=== PATIENT | female | born 1935 | race Caucasian/White ===

== ENCOUNTER 2016-07-25 13:19 | Inpatient (IN) | payer OTHER, MEDICARE ==
[~2016-07-25] VITALS: Ht 134.6 cm; Wt 53.1 kg
--- NOTE | 2016-07-25 13:45 | NUR ---
C/O FEELING LIGHTHEADED, DIZZY, NAUSEATED X 3 DAYS. DENIES CHEST PAIN OR SOB, BUT C/O LEFT SIDED NECK PAIN X 3 DAYS. SPEAK PROTUGESE, DAUGHTER TRANSLATING. DAUGHTER REPORTS SHE HAD A SIMILIAR EPSISODE LAST MONTH.
--- NOTE | 2016-07-25 13:53 | ED GENERAL ADULT ---
History of Present Illness General Chief Complaint: General Adult Stated Complaint: LFT EAR PAIN/DIZZINESS/CONFUSION Source: patient, family Exam Limitations: language barrier Vital Signs & Intake/Output Vital Signs & Intake/Output Vital Signs Date Time Temp Pulse Resp B/P B/P Pulse O2 O2 Flow FiO2 Mean Ox Delivery Rate 07/25 1805 97.6 76 18 166/72 99 Room Air 05/ 1501 97.2 67 18 149/70 97 Room Air 07/25 1428 Room Air 07/25 1348 98.4 82 18 134/79 99 Room Air Allergies Coded Allergies: NO KNOWN ALLERGIES (07/18/13) Reconcile Medications Acetaminophen 500 MG TABLET 2 TAB PO DAILY PAIN (Reported) Celecoxib 200 MG CAPSULE 1 CAP PO DAILY OSTEOPOROSIS (Reported) Lisinopril 10 MG TABLET 1 TAB PO DAILY BP (Reported) Multivitamin (Multi-Day Vitamins) 1 EACH TABLET 1 TAB PO DAILY SUPPLEMENT ( Reported) Omeprazole 20 MG CAPSULE.DR 1 CAP PO DAILY GI (Reported) Simvastatin (Simvastatin*) 20 MG TABLET 1 TAB PO QPM CHOLESTEROL (Reported) Triage Note: C/O FEELING LIGHTHEADED, DIZZY X 3 DAYS. DENIES CHEST PAIN OR SOB, BUT C/O LEFT SIDED NECK PAIN X 3 DAYS. SPEAK PROTUGESE, DAUGHTER TRANSLATING. Triage Nurses Notes Reviewed? yes HPI: Patient is a 81-year-old female presents for evaluation of dizziness, left-sided ear pain, near syncope sensations, pain radiating from the left side of her neck into the left occipital area. Symptoms 3 days, intermittent, last between 5 minutes and 30 minutes. Symptoms occur randomly, no apparent inciting factors. 2-3 episodes per day. Patient's daughter reports that patient appears mildly confused and disoriented when these episodes are occurring. Patient reports the episodes feel "like things are going dark and then I am going to pass out". Left-sided ear pain onset today. Patient increased her fluid intake with no improvement of symptoms. Denies history of similar symptoms. Denies fevers, chills, recent trauma, chest pain, palpitations, dyspnea, extremity numbness or weakness. (GERMÁN CHILEL,KAYLA) Past History Travel History Traveled to [place] past 21 day No Medical History Any Pertinent Medical History? see below for history Cardiovascular: hypertension, hyperlipidemia Musculoskeletal: chronic back pain Surgical History Surgical History: non-contributory Psychosocial History Who do you live with Family Services at Home None What is your primary language Ethiopian Tobacco Use: Never used ETOH Use: occasional use Family History Hx Contributory? No (KAYLA POLK) Review of Systems Review of Systems Constitutional: Denies: chills, fever. EENTM: Reports: ear pain. Denies: blurred vision. Respiratory: Denies: cough, short of breath. Cardiovascular: Reports: see HPI. Denies: chest pain, palpitations, syncope. GI: Reports: nausea. Denies: abdominal pain, vomiting. Genitourinary: Reports: no symptoms. Musculoskeletal: Reports: neck pain. Skin: Reports: no symptoms. Neurological/Psychological: Reports: see HPI. Hematologic/Endocrine: Reports: no symptoms. Immunologic/Allergic: Reports: no symptoms. (KAYLA POLK) Physical Exam Physical Exam General Appearance: well developed/nourished, alert, awake Head: atraumatic, normal appearance Eyes: Bilateral: normal appearance, PERRL, EOMI. Ears, Nose, Throat: normal pharynx, normal ENT inspection, hearing grossly normal Neck: normal inspection, supple, full range of motion, no appreciable carotid bruit Respiratory: normal breath sounds, no respiratory distress, lungs clear Cardiovascular: regular rate/rhythm, no appreciable murmur Gastrointestinal: soft, non-tender Back: normal inspection, normal range of motion Extremities: normal inspection, normal capillary refill, normal range of motion, no edema Neurologic/Psych: awake, alert, oriented x 3, normal mood/affect, elevator adjuster II-XII nml as tested, normal [id number]-wi-crych movements Skin: intact, normal color, warm/dry Lymphatic: no anterior cervical anjali Core Measures ACS in differential dx? Yes ASA ordered for poss ACS? No-ACS ruled out CVA/TIA Diagnosis: Yes NIH Stroke Scale: Total 0 Dt/Tm Last Known Well: No Neurological S/S of CVA: Dizziness Reason tPA not ordered: Medical Contraindication Severe Sepsis Present: No Septic Shock Present: No Bedside Swallow Eval Done: Yes Result of Evaluation: Pass (KAYLA POLK) Progress Differential Diagnoses I considered the following diagnoses in my evaluation of the patient: peripheral vs central vertigo, cerebellar dysfunction, carotid dissection, electrolyte abnormality, anemia, orthostasis Plan of Care: Orders Procedure Date/time Status Regular Diet 07/25 D Active Patient Data 07/25 1835 Active OXYGEN SETUP (GEN) 07/25 170 Active Saline Lock 07/25 1706 Active Admit to inpatient 07/25 1706 Active Vital Signs 07/25 1706 Active Activity/Ambulation 07/25 1706 Active Code Status 07/25 1706 Active Intake & Output 07/25 1428 Active MISTAKE 07/25 1404 Active Telemetry/Vineyard Tender 07/25 1404 Active TROPONIN LEVEL 07/25 1404 Complete COMPREHENSIVE METABOLIC PANEL 07/25 1404 Complete CBC WITHOUT DIFFERENTIAL 07/25 1404 Complete EKG 07/25 1349 Active Laboratory Tests 07/25/16 1423: Anion Gap 12, Estimated GFR > 60, BUN/Creatinine Ratio 23.3, Glucose 111 H, Calcium 9.3, Total Bilirubin 0.5, AST 24, ALT 44, Alkaline Phosphatase 43, Troponin I < 0.01, Total Protein 6.9, Albumin 4.4, Globulin 2.5, Albumin/ Globulin Ratio 1.8, CBC w Diff NO MAN DIFF REQ, RBC 4.28, MCV 87.3, MCH 29.8, RDW 13.6, MPV 8.3, Gran % 56.2, Lymphocytes % 35.1, Monocytes % 7.0, Eosinophils % 1.4, Basophils % 0.3, Absolute Granulocytes 3.0, Absolute Lymphocytes 1.9, Absolute Monocytes 0.4, Absolute Eosinophils 0.1, Absolute Basophils 0, PUBS MCHC 34.1 Patient orthostatic negative 1430: Discussed with Dr. Adrian. 1520: Patient reports mild improvement in symptoms after Meclizine. Awaiting CT scan. 1710: Results of CT scan discussed with patient and her daughter. Patient passed bedside swallow evaluation. Dr. Adrian to discuss patient with hospitalist for admission (GERMÁN CHILEL,KAYLA) Diagnostic Imaging: Viewed by Me: CT Scan. Discussed w/RAD: CT Scan. Radiology Impression: PATIENT: KATERINE CONTRERAS PRESENT AGE: 81 PATIENT ACCOUNT NO: [id number] : 37 LOCATION: [facility] ORDERING PHYSICIAN: KAYLA CHILEL SERVICE DATE: 07/25/16 EXAM TYPE: CAT - CT HEAD ANGIOGRAM; CT NECK ANGIOGRAM EXAMINATION: CT HEAD ANGIOGRAM, CT NECK ANGIOGRAM CLINICAL INFORMATION: Dizziness. Left-sided neck pain. COMPARISON: No relevant prior imaging available. TECHNIQUE: Research Executive images were obtained. A CT angiogram of the head and neck was performed in the arterial phase after the intravenous administration of 95 mL Optiray 320. Pre and delayed postcontrast images of the head were also obtained. MIP reconstructions were generated in multiple orientations at the acquisition workstation. Multiple three-dimensional surface rendered images and maximum intensity projection images were generated on a dedicated 3-D lab workstation. Total exam dose-length product 2060.49 mGy- cm FINDINGS: Head: Delayed postcontrast images reveal subtle enhancement within the caudate head and putamen for instance best illustrated on axial image 34 of 64 series 5. Otherwise no worrisome intracranial mass or enhancement. There is no intracranial mass effect or midline shift. No abnormal extra axial collection. Lateral and third ventricles are normal. No hydrocephalus. Peres- white matter differentiation is preserved and there is no evidence of acute territorial infarct. There is no acute intracranial hemorrhage. The calvarium and skull base are intact. Mastoid air cells and middle ear cavities are well aerated. Visualized paranasal sinuses are well aerated. CT angiogram neck: There is reflux of contrast material into the internal jugular veins therefore the diagnostic accuracy of this examination is limited. The aortic arch apex is normal and the origins of the major aortic branches are grossly patent. The common carotid arteries are normal. Calcified atherosclerotic plaque involves both carotid bifurcations. There is no internal carotid artery stenosis. The cervical segments of the vertebral arteries are well aerated. The vertebral artery origins are suboptimally assessed. CT angiogram head: The petrous, cavernous, and supraclinoid segments of the internal carotid arteries are patent. The intradural vertebral artery segments and basilar artery are patent. There is moderate to severe diffuse irregular narrowing of the right posterior cerebral artery. The anterior, middle, and posterior cerebral artery complexes are otherwise unremarkable. Other: There is a heterogeneously enhancing nodule involving the thyroid isthmus and the lower pole of left thyroid lobe. Soft tissues of the neck are otherwise unremarkable. Grossly there are no pathologically enlarged cervical lymph nodes. Lung apices are clear. IMPRESSION: Delayed postcontrast images reveal subtle enhancement of the right caudate head and the right putamen. The etiology of this finding is uncertain. It may indicate the presence of a developmental venous anomaly. Alternatively this finding may represent parenchymal enhancement associated with a subacute infarct therefore correlation with the patient's clinical symptoms is recommended. Alternatively a brain MRI without and with contrast may be helpful for better anatomic characterization of this finding. There is reflux of contrast material into the internal jugular veins therefore the diagnostic accuracy of the CT angiogram component of this examination is limited. Calcified atheromatous plaque involves both carotid bifurcations. No intracranial internal carotid artery stenosis. There is diffuse moderate to high-grade narrowing of the right posterior cerebral artery. Otherwise no evidence of high-grade stenosis or proximal large vessel occlusion within the intracranial vessels. There is a heterogeneously enhancing nodule involving the thyroid isthmus in the lower pole of the left thyroid lobe. Correlation with thyroid function tests is recommended. DICTATED BY: MYRNA LYNN MD DATE/TIME DICTATED:07/25/161625 MEDICARE SPECIALIST:SANTANA DATE/TIME TRANSCRIBED:07/25/161625 CONFIDENTIAL, DO NOT COPY WITHOUT APPROPRIATE AUTHORIZATION. <Electronically signed in Other Vendor System> SIGNED BY: MYRNA LYNN MD 07/25/16 1642 Initial ED EKG: normal sinus rhythm 76 bpm normal axis, normal intervals, less than [address] depression in lead 2, aVF, V4 through V6 Rhythm Strip: normal sinus rhythm (KAYLA POLK) Departure Departure Disposition: STILL A PATIENT Condition: Stable Clinical Impression Primary Impression: Vertigo, central Secondary Impressions: CVA (cerebral vascular accident) Referrals: ALONDRA ESCOBEDO MD Departure Forms: Customer Survey General Discharge Information Admission Note Spoke With: ABIDA PALMA MD Documentation of Exam: Documentation of any treatments & extenuating circumstances including Concerns Regarding Discharge (functional status, medication knowledge or non-compliance, living conditions, etc.) that warrant an admission rather than observation: SERIAL NEUROLOGIC EXAMS, NEUROLOGY CONSULTATION, MRI IMAGING, TELEMETRY MONITORING, ANTIPLATELET THERAPY (KAYLA POLK) PA/ASSEMBLER GARMENT FORM Co-Sign Statement Statement: ED Attending supervision documentation- x I saw and evaluated the patient. I have also reviewed all the pertinent lab results and diagnostic results. I agree with the findings and the plan of care as documented in the PA's/ASSEMBLER GARMENT FORM's documentation. [] I have reviewed the ED Record and agree with the PA's/ASSEMBLER GARMENT FORM's documentation. [] Additions or exceptions (if any) to the PAs/ASSEMBLER GARMENT FORM's note and plan are summarized below: [] (TAMARA ADRIAN MD) Critical Care Note Critical Care Note Critical Care Time: non-applicable (GERMÁN CHILEL,KAYLA)
--- NOTE | 2016-07-25 13:56 | NUR ---
RECIEVED TO ROOM 16 WITH DTR. PT CHANGED INTO HOSP GOWN. EKG BEING DONE. KAYLA DUNLAP IN TO SEE PT
--- NOTE | 2016-07-25 14:11 | NUR ---
ORTHOSTATIC BLOOD PRESSURES DONE
--- NOTE | 2016-07-25 14:27 | NUR ---
LABS DRAWN. IV PLACED. MECLIZINE GIVEN. PT ON MONITOR IN NSR
[2016-07-25 14:31] LABS: ABSOLUTE BASOPHIL COUNT 0 /CUMM (0.0-0.2); ABSOLUTE EOSINOPHIL COUNT 0.1 /CUMM (0.0-0.7); ABSOLUTE LYMPH COUNT 1.9 /CUMM (1.2-3.4); ABSOLUTE MONOCYTE COUNT 0.4 /CUMM (0.10-0.60); BASOPHIL % 0.3 % (0.0-2.0); EOSINOPHIL % 1.4 % (0-5); GRANULOCYTE % 56.2 % (42.2-75.2); HEMATOCRIT 37.4 % (37-47); MEAN CORPUSCULAR HGB 29.8 PG (27.0-31.0); MEAN CORPUSCULAR HGB CONC 34.1 G/DL (33.0-37.0); MEAN CORPUSCULAR VOLUME 87.3 FL (81.0-99.0); MEAN PLATELET VOLUME 8.3 FL (7.4-10.4); PLATELET COUNT 183 /CUMM (130-400); RBC DISTRIBUTION WIDTH 13.6 % (11.5-14.5); RED BLOOD CELL CT 4.28 /CUMM (4.20-5.40); WHITE BLOOD CELL COUNT 5.3 /CUMM (4.8-10.8)
--- NOTE | 2016-07-25 15:00 | NUR ---
PT RESTING QUIETLY. DTR AT BEDSIDE
--- NOTE | 2016-07-25 15:35 | NUR ---
PT TAKEN TO CT SCAN
[2016-07-25] MEDS ORDERED: LISINOPRIL10 M1 PO (16:19)
[2016-07-25] MEDS ORDERED: CELECOXIB200 M1 PO (16:19)
[2016-07-25] MEDS ORDERED: SIMVASTATIN20 M2 PO (16:19)
[2016-07-25] MEDS ORDERED: ACETAMINOPHEN500 M4 PO (16:20)
[2016-07-25] MEDS ORDERED: OMEPRAZOLE20 M2 PO (16:20)
[2016-07-25] MEDS ORDERED: MULTI-DAY VITA1 EACH PO (16:20)
--- NOTE | 2016-07-25 16:42 | CT SCAN REPORT ---
EXAMINATION: CT HEAD ANGIOGRAM, CT NECK ANGIOGRAM CLINICAL INFORMATION: Dizziness. Left-sided neck pain. COMPARISON: No relevant prior imaging available. TECHNIQUE: Prepress Operator images were obtained. A CT angiogram of the head and neck was performed in the arterial phase after the intravenous administration of 95 mL Optiray 320. Pre and delayed postcontrast images of the head were also obtained. MIP reconstructions were generated in multiple orientations at the acquisition workstation. Multiple three-dimensional surface rendered images and maximum intensity projection images were generated on a dedicated 3-D lab workstation. Total exam dose-length product 2060.49 mGy-cm FINDINGS: Head: Delayed postcontrast images reveal subtle enhancement within the caudate head and putamen for instance best illustrated on axial image 34 of 64 series 5. Otherwise no worrisome intracranial mass or enhancement. There is no intracranial mass effect or midline shift. No abnormal extra axial collection. Lateral and third ventricles are normal. No hydrocephalus. Peres-white matter differentiation is preserved and there is no evidence of acute territorial infarct. There is no acute intracranial hemorrhage. The calvarium and skull base are intact. Mastoid air cells and middle ear cavities are well aerated. Visualized paranasal sinuses are well aerated. CT angiogram neck: There is reflux of contrast material into the internal jugular veins therefore the diagnostic accuracy of this examination is limited. The aortic arch apex is normal and the origins of the major aortic branches are grossly patent. The common carotid arteries are normal. Calcified atherosclerotic plaque involves both carotid bifurcations. There is no internal carotid artery stenosis. The cervical segments of the vertebral arteries are well aerated. The vertebral artery origins are suboptimally assessed. CT angiogram head: The petrous, cavernous, and supraclinoid segments of the internal carotid arteries are patent. The intradural vertebral artery segments and basilar artery are patent. There is moderate to severe diffuse irregular narrowing of the right posterior cerebral artery. The anterior, middle, and posterior cerebral artery complexes are otherwise unremarkable. Other: There is a heterogeneously enhancing nodule involving the thyroid isthmus and the lower pole of left thyroid lobe. Soft tissues of the neck are otherwise unremarkable. Grossly there are no pathologically enlarged cervical lymph nodes. Lung apices are clear. IMPRESSION: Delayed postcontrast images reveal subtle enhancement of the right caudate head and the right putamen. The etiology of this finding is uncertain. It may indicate the presence of a developmental venous anomaly. Alternatively this finding may represent parenchymal enhancement associated with a subacute infarct therefore correlation with the patient's clinical symptoms is recommended. Alternatively a brain MRI without and with contrast may be helpful for better anatomic characterization of this finding. There is reflux of contrast material into the internal jugular veins therefore the diagnostic accuracy of the CT angiogram component of this examination is limited. Calcified atheromatous plaque involves both carotid bifurcations. No intracranial internal carotid artery stenosis. There is diffuse moderate to high-grade narrowing of the right posterior cerebral artery. Otherwise no evidence of high-grade stenosis or proximal large vessel occlusion within the intracranial vessels. There is a heterogeneously enhancing nodule involving the thyroid isthmus in the lower pole of the left thyroid lobe. Correlation with thyroid function tests is recommended.
--- NOTE | 2016-07-25 17:09 | NUR ---
SEEN BY KAYLA CHILEL AND DISCUSSED PLAN TO ADMIT TO HOSPITAL
--- NOTE | 2016-07-25 17:33 | NUR ---
MEDICATED WITH ASA AND DINNER ORDERED
--- NOTE | 2016-07-25 19:05 | NUR ---
PT RESTING QUIETLY. APPEARS TO BE SLEEPING
--- NOTE | 2016-07-25 19:39 | NUR ---
BED ASSIGNMENT 185-1
--- NOTE | 2016-07-25 19:51 | NUR ---
REPORT CALLED TO TELE UNIT
[2016-07-25 20:30] VITALS: BP 122/68
--- NOTE | 2016-07-25 21:57 | History & Physical ---
MYKE BULL,[facility] 07/25/16 2156: General Information and HPI MD Statement: I have seen and personally examined KATERINE CONTRERAS and documented this H&P. The patient is a 81 year old F who presented with a patient stated chief complaint of [presyncopal attack]. Source of Information: patient, family Exam Limitations: language barrier History of Present Illness: Ms. Contreras is 81 year old female with chief complain of dizziness and presyncopal attack, she has past medical history significant for hypertension, osteoporosis. Most of the history was obtained from patient's daughter due to language barrier. Daughter reported 2 weeks history of presyncopal attack that is non-positional proceeded by visual changes, associated with episodes of left ear pain/itching, no discharge or trauma, no tinnitus. Patient denied any previous history of similar attacks in the past, denied any chest pain, palpitation, nasal congestion, sore throat, fever, chills, weakness, numbness, nausea or vomiting, diarrhea, increased urine frequency, poor oral intake although daughter noticed that patient's appetite was decreased recently. There is no history of sick contact, lose of consciousness, seizures. Over the last 3 days, patient noticed frontal tension headache, improves with tyelnol. Left neck pain, precipitated by movement. Patient lives with her daughter, independent in ADL and IADL, no history of smoking, consumes 3-4 cups of wine per week. Allergies/Medications Allergies: Coded Allergies: NO KNOWN ALLERGIES (07/18/13) Home Med list Acetaminophen 500 MG TABLET 2 TAB PO DAILY PAIN (Reported) Celecoxib 200 MG CAPSULE 1 CAP PO DAILY OSTEOPOROSIS (Reported) Lisinopril 10 MG TABLET 1 TAB PO DAILY BP (Reported) Multivitamin (Multi-Day Vitamins) 1 EACH TABLET 1 TAB PO DAILY SUPPLEMENT ( Reported) Omeprazole 20 MG CAPSULE. 1 CAP PO DAILY GI (Reported) Simvastatin (Simvastatin*) 20 MG TABLET 1 TAB PO QPM CHOLESTEROL (Reported) Past History Travel History Traveled to [place] past 21 day No Medical History Blood Transfusion Hx: No Neurological: NONE EENT: NONE Cardiovascular: hypertension, hyperlipidemia Respiratory: NONE Gastrointestinal: NONE Hepatic: NONE Renal: NONE Musculoskeletal: chronic back pain Psychiatric: NONE Endocrine: NONE Blood Disorders: NONE Cancer(s): NONE SNOWBOARDING INSTRUCTOR/Reproductive: NONE Surgical History Surgical History: non-contributory Past Family/Social History Psychosocial History Where do you live? Home Services at Home: None Smoking Status: Never Smoked ETOH Use: occasional use Review of Systems Review of Systems Constitutional: Reports: see HPI. Denies: fever, malaise, weakness. EENTM: Reports: blurred vision. Denies: nasal congestion. Cardiovascular: Denies: chest pain, orthopena, palpitations. Respiratory: Denies: cough, short of breath, sputum production, stridor, wheezing. GI: Denies: abdominal pain, diarrhea, nausea, vomiting. Genitourinary: Denies: dysuria, frequency, hematuria. Musculoskeletal: Denies: back pain, joint pain. Skin: Denies: change in skin color, change in hair/nails. Neurological/Psychological: Reports: headache. Denies: numbness, tingling, tremors. Exam & Diagnostic Data Last 24 Hrs of Vital Signs/I&O Vital Signs Date Time Temp Pulse Resp B/P B/P Pulse O2 O2 Flow FiO2 Mean Ox Delivery Rate 07/26 0051 98.6 79 20 150/80 96 Room Air 07/25 2030 97.8 70 16 122/68 97 Room Air 07/25 1941 97.6 72 18 146/66 96 Room Air 05/ 1805 97.6 76 18 166/72 99 Room Air / 1501 97.2 67 18 149/70 97 Room Air / 1428 Room Air / 1348 98.4 82 18 134/79 99 Room Air Intake & Output 07/26 0800 / 0000 07/25 1600 Intake Total 250 Output Total Balance 250 Intake, IV 0 Intake, Oral 250 Number 0 Bowel Movements Patient 53.07 kg 56.699 kg Weight Weight Reported by Patient Reported by Patient Measurement Method Physical Exam General Appearance Alert, Oriented X3, Cooperative, No Acute Distress Skin No Rashes, No Breakdown, No Significant Lesion Skin Temp/Moisture Exam: Warm/Dry HEENT Atraumatic, PERRLA, EOMI, Mucous Membr. moist/pink, bilateral fine horizontal nystagmus Neck Supple, No JVD Lymphatic no cervical lymphadenopathy Cardiovascular Regular Rate, Normal S1, Normal S2, No Murmurs Lungs Clear to Auscultation, Normal Air Movement Abdomen Normal Bowel Sounds, Soft, No Tenderness Neurological Normal Gait, Normal Speech, Strength at 5/5 X4 Ext, Normal Tone, Sensation Intact, Cranial Nerves 3-12 NL, Reflexes 2+, normal finger to nose test Extremities No Clubbing, No Cyanosis, No Edema, Normal Pulses Assessment/Plan Assessment: Ms. Contreras is 81 year old female with chief complain of dizziness and presyncopal attack, she has past medical history significant for hypertension, osteoporosis. On admission Vitals temperature 98.4, pulse 82, blood pressure 134/79, respiratory rate 18 saturation 99% on room air Labs H&H 12.8/37.4, WBC 5.3, platelet 183, sodium 142, potassium 3.9, BUN/ creatinine 14/0.6, troponin less than 0.1 CTA head and neck IMPRESSION: Delayed postcontrast images reveal subtle enhancement of the right caudate head and the right putamen. The etiology of this finding is uncertain. It may indicate the presence of a developmental venous anomaly. Alternatively this finding may represent parenchymal enhancement associated with a subacute infarct therefore correlation with the patient's clinical symptoms is recommended. Alternatively a brain MRI without and with contrast may be helpful for better anatomic characterization of this finding. There is reflux of contrast material into the internal jugular veins therefore the diagnostic accuracy of the CT angiogram component of this examination is limited. Calcified atheromatous plaque involves both carotid bifurcations. No intracranial internal carotid artery stenosis. There is diffuse moderate to high-grade narrowing of the right posterior cerebral artery. Otherwise no evidence of high-grade stenosis or proximal large vessel occlusion within the intracranial vessels. There is a heterogeneously enhancing nodule involving the thyroid isthmus in the lower pole of the left thyroid lobe. Correlation with thyroid function tests is recommended. Problem list #Presyncopal attack #Hypertension #Right caudate head and the right putamen subtle enhancement Plan -Admit to telemetry floor for close monitoring -Watch for any arrhythmia -Obtain serial troponin and EKG -Obtain orthostatic -Obtain TSH and free T4 -Obtain neuro consultation for basal ganglia abnormality -Obtain MRI head -Obtain echocardiogram -PT, OT -Obtain vitamin B12 level -DVT prophylaxis Lovenox -Regular diet -Full code As Ranked By This Provider Problem List: 1. Pre-syncope Core Measures/Miscellaneous Acute Coronary Syndrome ACS Diagnosis: No Cerebrovascular Accident CVA/TIA Diagnosis: No Neurological S/S of CVA: Dizziness Reason tPA not ordered Medical Contraindication Bedside Swallow Eval Done: Yes Result of Evaluation: Pass Congestive Heart Failure CHF Diagnosis: No Venous Thromboembolism VTE Risk Factors: Age > 40 No Mech VTE prophylaxis d/t: No contraindications No VTE Pharm Prophylaxis d/t: No contraindications VTE Diagnosis: No VTE Type: NONE VTE Confirmed by (Test): NONE Severe Sepsis Severe Sepsis Present: No Septic Shock Septic Shock Present: No Miscellaneous Documentation Attending Case Discussed With: ABIDA PALMA MD Primary Care Physician: Maria Antonia NAVA MD Patient sees these Specialists none Level of Patient Care: Telemetry STEPHANIE MILLAN 07/26/16 0039: Resident Review Statement Resident Statement: examined this patient, discussed with financial internship, agreed with financial internship, discussed with family, reviewed EMR data (avail) Other Findings: is a 81 yo women with PMHx. of HTN, Osteoporosis, Lt. kidney stone who presented to ED with a c/o of dizziness. Hx. was obtained from patient daughter 2/2 language barrier, who states that the patient was not feeling herself over the last 2 weeks, she started to feels dizzy and on she started to feels as she is going to pass out, her symptoms is not related to position, she complained of pain inthe left ear, associated with itching sensation, no tinnitus, no discharge. She also report frontal headache that managed with tylenol as needed. She had vision chnages with she experience the dizziness. Java Sdet cp, SOB, recent illness or URTI, N/V and there is no changes in urinary or bowel habits. Patient was at her PCP office 2 weeks ago for physical, at that time no abnormal finding. Vitals stable, examination, labs and imaging as above Assessment: #Dizziness with presyncopal attack #Lt. neck pain #Hx. of HTN, HLD, OA Plan: -Will admitt to telemetry floor -Check orthostat -Will check another set of Troponin and EKG -Echo a.m. - PT evaluation -[facility] radiology needs to be contacted at am regarding any finding in the cervical spine - MRI brain at am -Neuro. consult regarding CTA finding -Will continue aspirin 81 -Atorvastatin 40 mg by mouth daily - Will check TSH DVT prophylaxis: SC Lovenox Full code ABIDA PALMA 07/26/16 0050: Attending Review Statement Attending Statement Attending MD Statement: examined this patient, discuss w/resident/PA/PROJECT DESIGNER, agreed w/resident/PA/PROJECT DESIGNER, discussed with family, reviewed EMR data (avail), reviewed images, amended to note Attending Assessment/Plan: CC: Dizziness PMH: HTN, HLD, OA Patient was brought in by her daughter for a few weeks history of dizziness described as fainting spells, associated with blackening in front of her eyes. Initially the episodes were on and off since last few weeks but in last 4 days the symptoms have been constant. Patient had been mentioning about deviation of left angle of mouth in the past. No actual fall or slumping, not associated with any posture change, no weakness in upper or lower extremity, no gait changes except slowing down. History is provided by patient's daughter due to language barrier. Daughter states that patient has not been really active, slowed down, little confused and poor by mouth intake. She also complains of left-sided neck pain going up to her left ear, no chest pain or left shoulder pain, no ear discharge, no tinnitus. Vitals: Afebrile, pulse in 70s to 80s, RR 18, blood pressure 134/79, saturating well on room air. On exam: A, cooperative, no acute distress, neck supple, JVD normal, no lymphadenopathy, no pharyngeal congestion, no ear discharge, tympanic membrane could not be seen secondary to wax both sides right more than left, no point tenderness on the neck, mucosa moist, complete neurological examination normal, no dependent edema, no obvious skin rashes or inflammation CVS: S1-S2, RRR. RS: Clear to auscultate bilaterally. Abdomen: Soft, NT, ND, bowel sounds present. Labs: CBC, BMP, LFT, troponin unremarkable CTA head and neck: Delayed postcontrast images reveal subtle enhancement of the right caudate head and the right putamen . The etiology of this finding is uncertain. It may indicate the presence of a developmental venous anomaly. Alternatively this finding may represent parenchymal enhancement associated with a subacute infarct therefore correlation with the patient's clinical symptoms is recommended. Alternatively a brain MRI without and with contrast may be helpful for better anatomic characterization of this finding. There is reflux of contrast material into the internal jugular veins therefore the diagnostic accuracy of the CT angiogram component of this examination is limited. Calcified atheromatous plaque involves both carotid bifurcations. No intracranial internal carotid artery stenosis. There is diffuse moderate to high-grade narrowing of the right posterior cerebral artery . Otherwise no evidence of high-grade stenosis or proximal large vessel occlusion within the intracranial vessels. There is a heterogeneously enhancing nodule involving the thyroid isthmus in the lower pole of the left thyroid lobe . Correlation with thyroid function tests is recommended. A and P Dizziness, ?Fainting spells without actual loss of consciousness or fall. Complete neurological examination is unremarkable, no tinnitus. Unclear etiology for this dizziness. Arrhythmias, orthostatic hypotension and valvular abnormalities should be ruled out. Patient's daughter has a concern regarding deviation of left angle of mouth, unknown duration. Patient is also found to have subtle enhancement within the caudate head and putamen, ?Subacute stroke, lesion could not be characterized. MRI was suggested. + Dizziness + Left-sided neck pain + History of HTN, HLD, OA - Admit to telemetry - Continuous telemetry monitoring - Orthostatic vitals - 2-D echo in a.m. - OT PT evaluation - Serial troponin and EKG 2 - Check with the radiology regarding cervical spine on recent CTA neck - MRI brain - Continue aspirin 81 -Change simvastatin to atorvastatin 40 mg by mouth daily - Neurology consult for subtle enhancement within the caudate head and putamen, ?Subacute stroke - Thyroid ultrasound - Continue in the a.m. regarding symptomatic improvement with one dose of meclizine in ER - Advance diet as tolerated, continue home medications - DVT prophylaxis, adequate pain control
[2016-07-26 00:51] VITALS: BP 150/80
--- NOTE | 2016-07-26 00:52 | Admission Certification ---
Admission Certification Certification Statement - As attending physician, I certify that at the time of - admission, based on clinical presentation, severity of - symptoms, need for further diagnostic testing and - therapeutic interventions, and risk of adverse outcomes - without in-hospital treatment, in my clinical assessment, - this patient requires an acute hospital stay for a minimum - of two nights or longer. I have also considered psychsocial - factors such as support system, advanced age, financial - issues, cognitive issues, and failed out-patient treatments, - past re-admission history, safety of patient, and lack of - compliance as applicable. Specific rationale supporting this admission is: Dizziness
[2016-07-26 07:59] VITALS: BP 112/78
--- NOTE | 2016-07-26 08:27 | PN- Housestaff ---
Subjective Follow-up For: #Presyncopal attack #Hypertension #Right caudate head and the right putamen subtle enhancement Subjective: Patient continues to complain of dizziness. Patient and her daughter are aware that she will have an MRI on Wednesday. Currently Thyroid USG and ECHO are pending. Review of Systems Constitutional: Reports: see HPI. Objective Last 24 Hrs of Vital Signs/I&O Vital Signs Date Time Temp Pulse Resp B/P B/P Pulse O2 O2 Flow FiO2 Mean Ox Delivery Rate 07/26 0759 97.4 68 14 112/78 96 Room Air 07/26 0051 98.6 79 20 150/80 96 Room Air 07/25 2030 97.8 70 16 122/68 97 Room Air 07/25 1941 97.6 72 18 146/66 96 Room Air 07/25 1805 97.6 76 18 166/72 99 Room Air 07/25 1501 97.2 67 18 149/70 97 Room Air 07/25 1428 Room Air 07/25 1348 98.4 82 18 134/79 99 Room Air Intake & Output 07/26 1600 07/26 0800 07/26 0000 Intake Total 100 250 Output Total Balance 100 250 Intake, IV 0 0 Intake, Oral 100 250 Number 0 0 Bowel Movements Patient 117 lb Weight Weight Reported by Patient Measurement Method Physical Exam General Appearance: Alert, Oriented X3, Cooperative Cardiovascular: Regular Rate, Normal S1, Normal S2 Lungs: Clear to Auscultation, Normal Air Movement Abdomen: Normal Bowel Sounds, Soft, No Tenderness Neurological: Normal Speech, Strength at 5/5 X4 Ext, Normal Tone, Sensation Intact Extremities: No Edema Current Medications: Current Medications Sig/Gloria Start time Last Medication Dose Route Stop Time Status Admin Acetaminophen 650 MG Q6-PRN PRN 07/25 2045 AC 07/26 PO 0705 Aspirin 81 MG DAILY 07/26 1000 AC PO Aspirin 0 .STK-MED ONE 07/25 1727 DC PO Aspirin 81 MG ONCE ONE 07/25 1715 DC 07/25 PO 07/25 1716 1726 Atorvastatin Calcium 20 MG 0 07/26 1700 DC PO Atorvastatin Calcium 40 MG 1700 07/26 1700 AC PO Celecoxib 200 MG DAILY 07/26 1000 AC PO Enoxaparin Sodium 40 MG DAILY 07/26 1000 AC SC Lisinopril 10 MG DAILY 07/26 1000 AC PO Meclizine HCl 0 .STK-MED ONE 07/25 1418 DC PO Meclizine HCl 12.5 MG ONCE ONE 07/25 1415 DC 07/25 PO 07/25 1416 1427 Morphine Sulfate 4 MG Q12P PRN 07/26 0330 AC IV Omeprazole 20 MG DAILY AC 07/26 0700 AC 07/26 PO 0705 Oxycodone/ 1 TAB Q6P PRN 07/26 033 AC Acetaminophen PO Patient Medication 1 UNIT ONE NR 07/255 OR Teaching ED 07/25 2129 Last 24 Hrs of Lab/Malcolm Results Last 24 Hrs of Labs/Mics: Laboratory Tests 07/26/16 0105: Troponin I < 0.01, TSH 1.550 07/25/16 142: Anion Gap 12, Estimated GFR > 60, BUN/Creatinine Ratio 23.3, Glucose 111 H, Calcium 9.3, Total Bilirubin 0.5, AST 24, ALT 44, Alkaline Phosphatase 43, Troponin I < 0.01, Total Protein 6.9, Albumin 4.4, Globulin 2.5, Albumin/ Globulin Ratio 1.8, CBC w Diff NO MAN DIFF REQ, RBC 4.28, MCV 87.3, MCH 29.8, RDW 13.6, MPV 8.3, Gran % 56.2, Lymphocytes % 35.1, Monocytes % 7.0, Eosinophils % 1.4, Basophils % 0.3, Absolute Granulocytes 3.0, Absolute Lymphocytes 1.9, Absolute Monocytes 0.4, Absolute Eosinophils 0.1, Absolute Basophils 0, PUBS MCHC 34.1 Lines/Diet/Fluids Lines: peripheral lines Assessment/Plan Assessment: 81 y/o female presenting with complaints of dizziness, fainting spells. CT of the head and neck showed the presence of subtle enhancement of the right caudate head and the right putamen, which may be secondary to a venous anomaly vs subacute infarct. Neck CTA showed the presence of a heterogenously enhancing nodule involving the thryoid isthmus in the lower pole of the thyroid lobe. So far, Trops x 2 negative. MRI of the brain is pending. Neurology consult pending. Thyroid USG pending. Plan: - Continue to monitor on telemetry for now. - MRI of brain and Thyroid USG pending. - Neuro consult pending. Spoke to Dr. Herron regarding the patient, and he will see her. - Continue Aspirin and Statin. - Please confirm with radiology regarding the finding on CTA of the neck regarding the thyroid gland, as the TSH is WNL. - Pain Pathway: Mild, moderate and severe. - DVT PPX: Lovenox Subq - Code Status: Full code Problem List: 1. Pre-syncope 2. CVA (cerebral vascular accident) 3. Vertigo, central Pain Ratin Pain Location: None Pain Goal: Pain 4 or less Pain Plan: Per EMR Tomorrow's Labs & Rationales: Stable for now. Do not anticipate needing them tomorrow. DVT/Prophylaxis: pharmacological
--- NOTE | 2016-07-26 12:20 | ULTRASOUND REPORT ---
EXAMINATION: US THYROID CLINICAL INFORMATION: Dizziness. Enhancing nodule seen on CT scan of the neck in the left lobe of the thyroid gland. Assess thyroid gland. COMPARISON: CT scan of the neck dated 07/25/2016 TECHNIQUE: Linear transducer tom-scale and color Doppler examination with attention to the region of the thyroid. FINDINGS: SIZE: Measurements of the thyroid lobes and nodules are given in sagittal, anteroposterior and transverse dimensions respectively. Right thyroid lobe: 3.5 x 0.9 x 1.0 cm, volume 1.7 mL. Parenchyma: The gland echotexture is heterogeneous. Thyroid vascularity is increased. Left thyroid lobe: 4.4 x 1.3 x 1.5 cm, volume 4.5 mL. Parenchyma: The gland echotexture is heterogeneous. Thyroid vascularity is mildly increased. Isthmus: 0.7 cm in maximum AP dimension. RIGHT THYROID LOBE: No nodules. ISTHMUS: No nodules. LEFT THYROID LOBE: There are 2 nodules seen. 1: Location: Lower pole. Size: 0.8 x 0.7 x 0.7 cm. Nodule characteristics: Hyperechoic. Smooth margins with hypoechoic rim. No calcification. Positive vascular flow. 2: Location: Lower pole. Size: 1.9 x 1.4 x 2.8 cm. Nodule characteristics: Heterogeneous. Smooth margins with hypoechoic rim. Positive vascular flow and internal calcifications. NODES: No lymphadenopathy is seen in the tissue surrounding the thyroid gland. IMPRESSION: 2 solid nodules are seen in the lower pole of the left lobe. Per the JIMBO recommendations, an ultrasound guided biopsy of the dominant nodule in the lower pole of the left lobe is recommended. Findings discussed with Emilio Marcum 07/26/2016, 12:16 PM.
--- NOTE | 2016-07-26 13:51 | Cons- Neurology ---
General Information and HPI Consulting Request Date of Consult: 07/26/16 Requested By: ABIDA PALMA MD History of Present Illness: 81-year-old female presents with a several week history of lightheadedness, perhaps near syncope and a 3 day history of frontal headache and some neck discomfort. CAT scan of the head showed a question of a subacute ischemic infarct in the region of the right caudate and putamen. 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 She has no known history of stroke. Allergies/Medications Allergies: Coded Allergies: NO KNOWN ALLERGIES (07/18/13) Home Med List: Acetaminophen 500 MG TABLET 2 TAB PO DAILY PAIN (Reported) Celecoxib 200 MG CAPSULE 1 CAP PO DAILY OSTEOPOROSIS (Reported) Lisinopril 10 MG TABLET 1 TAB PO DAILY BP (Reported) Multivitamin (Multi-Day Vitamins) 1 EACH TABLET 1 TAB PO DAILY SUPPLEMENT ( Reported) Omeprazole 20 MG CAPSULE.DR 1 CAP PO DAILY GI (Reported) Simvastatin (Simvastatin*) 20 MG TABLET 1 TAB PO QPM CHOLESTEROL (Reported) Review of Systems Review of Systems: Somewhat limited due to language barrier. As per the HPI, there has been recent headache, neck discomfort and lightheadedness. She reports no dysphagia, chest pain, vomiting, joint inflammation or bleeding disturbance Past History Travel History Traveled to [place] past 21 day No Medical History Blood Transfusion Hx: No Neurological: NONE EENT: NONE Cardiovascular: hypertension, hyperlipidemia Respiratory: NONE Gastrointestinal: NONE Hepatic: NONE Renal: NONE Musculoskeletal: chronic back pain Psychiatric: NONE Endocrine: NONE Blood Disorders: NONE Cancer(s): NONE FACILITY MAINTENANCE TECHNICIAN/Reproductive: NONE Surgical History Surgical History: non-contributory Psychosocial History Where Do You Live? Home Services at Home: None Smoking Status: Never Smoked ETOH Use: occasional use Exam & Diagnostic Data Vital Signs and I&O Vital Signs Date Time Temp Pulse Resp B/P B/P Pulse O2 O2 Flow FiO2 Mean Ox Delivery Rate 07/26 0946 68 112/78 07/26 0759 97.4 68 14 112/78 96 Room Air 07/26 0051 98.6 79 20 150/80 96 Room Air 07/25 2030 97.8 70 16 122/68 97 Room Air 07/25 1941 97.6 72 18 146/66 96 Room Air 07/25 1805 97.6 76 18 166/72 99 Room Air 07/25 1501 97.2 67 18 149/70 97 Room Air 07/25 1428 Room Air 07/25 1348 98.4 82 18 134/79 99 Room Air Intake & Output 07/26 1600 07/26 0800 07/26 0000 Intake Total 100 250 Output Total Balance 100 250 Intake, IV 0 0 Intake, Oral 100 250 Number 0 0 Bowel Movements Patient 117 lb Weight Weight Reported by Patient Measurement Method Very pleasant elderly female, up in bed and eating a hamburger. She was awake, alert and cooperative. The head was normocephalic and atraumatic. Pupils are equal and reactive. Extraocular movements were full. There was no nystagmus. The face was symmetric. Hearing was grossly normal. Tongue was midline. Motor examination showed no drift of the upper extremities. There was no focal or lateralizing weakness. Deep tendon reflexes were symmetric. Plantar responses were flexor. Fine finger movements and rapid alternating movements were performed normally. There was no ataxia on finger to nose testing. Gait was not evaluated. Assessment/Plan Assessment: Rather nonspecific complaints of lightheadedness and headache. Her neurological examination is completely benign. One would wish to clarify whether she indeed has had a small right subcortical infarct as cause for some of her symptomatology. Recommendations: Recommend MRI of the brain without contrast. I would empirically treat her with low-dose aspirin due to her presentation and the cerebrovascular abnormalities noted on her CTA. Would also continue her statin. Initial ambulation should be observed by nursing or physiotherapy. I do not anticipate a prolonged hospital stay. Please feel free to call with any further questions. Consult Acknowledgment - Thank you for your consult request.
--- NOTE | 2016-07-26 14:32 | PN- Att Addend ---
Attending Addendum Attending Brief Note Patient seen and examined. Lying comfortably in bed not in acute distress. Family present at the bedside. Denies any focal weakness. Denies any chest pain or palpitations. She has had no events while on telemetry. Vital Signs Date Time Temp Pulse Resp B/P B/P Pulse O2 O2 Flow FiO2 Mean Ox Delivery Rate 07/26 0946 68 112/78 05/ 0759 97.4 68 14 112/78 96 Room Air 07/26 0051 98.6 79 20 150/80 96 Room Air 07/25 2030 97.8 70 16 122/68 97 Room Air / 1941 97.6 72 18 146/66 96 Room Air 07/25 1805 97.6 76 18 166/72 99 Room Air 07/25 1501 97.2 67 18 149/70 97 Room Air Gen. appearance: Well-developed, not in acute distress Heart: S1-S2 regular Lungs: Good entry bilaterally, clear to auscultation Abdomen: Soft, nontender with normal bowel sounds Extremities: No pedal edema Skin: Intact with no rashes Neurologic: Alert and oriented 3. Speech is intact not slurred. No gross focal neurologic deficit. Laboratory Tests 07/26/16 0105: Troponin I < 0.01, TSH 1.550 Problems: 1. Dizziness 2. Thyroid nodule Plan: -Neurology consultation appreciated. Obtain MRI tomorrow to further evaluate abnormalities the CT scan. -Patient will need to follow-up with endocrinology service as an outpatient biopsy of thyroid nodules. -Continue conservative management with aspirin and statin. Anticipate discharge in the next 24-48 hours.
[2016-07-26 15:55] VITALS: BP 160/110
[2016-07-26 15:57] VITALS: BP 108/50
--- NOTE | 2016-07-27 07:19 | PN- Housestaff ---
See Addendum Subjective Follow-up For: Dizziness Possible subacute right subcortical infarct Neck pain Tele-Events Since Last Visit: Sinus rhythm HR 58-69 No events Subjective: No acute events overnight. Patient seen and examined this morning. Dizziness has significantly improved. She has been ambulating independently today. She continues to have left-sided neck pain. Meclizine administered in the ED on admission has helped with the dizziness. Review of Systems Constitutional: Reports: see HPI. Objective Last 24 Hrs of Vital Signs/I&O Vital Signs Date Time Temp Pulse Resp B/P B/P Pulse O2 O2 Flow FiO2 Mean Ox Delivery Rate 07/28 0703 97.7 70 18 118/70 98 Room Air 07/26 1557 98.1 82 16 108/50 97 Room Air 07/26 1555 97.9 103 16 160/110 93 Nasal 1.0L Cannula Intake & Output 07/27 1600 07/27 0800 07/27 0000 Intake Total 200 240 Output Total Balance 200 240 Intake, Oral 200 240 Physical Exam General Appearance: Alert, Oriented X3, No Acute Distress HEENT: Atraumatic, Mucous Membr. moist/pink Cardiovascular: Regular Rate, Normal S1, Normal S2 Lungs: Clear to Auscultation Abdomen: Soft, No Tenderness, Positive Bowel Sounds Neurological: No Gross Focal Deficits Noted Extremities: No Clubbing, No Cyanosis, No Edema Current Medications: Current Medications Sig/Gloria Start time Last Medication Dose Route Stop Time Status Admin Acetaminophen 650 MG .STK-MED ONE 07/26 1413 DC PO 07/26 1414 Acetaminophen 650 MG Q6-PRN PRN 07/25 2045 AC 07/26 PO 1412 Aspirin 81 MG DAILY 07/26 1000 AC 07/26 PO 0944 Atorvastatin Calcium 40 MG 1700 / 1700 AC 07/26 PO 1652 Celecoxib 200 MG DAILY 07/26 1000 AC 07/26 PO 0944 Enoxaparin Sodium 40 MG DAILY 07/26 1000 AC 07/26 SC 0946 Lisinopril 10 MG DAILY 07/26 1000 AC 07/26 PO 0946 Morphine Sulfate 4 MG Q12P PRN 07/26 0330 AC IV Omeprazole 20 MG DAILY AC 07/26 0700 AC 07/27 PO 0658 Oxycodone/ 1 TAB Q6P PRN 07/26 0330 AC 07/27 Acetaminophen PO 0837 Polyethylene Glycol 17 GM DAILY 07/27 1000 AC PO Senna/Docusate Sodium 1 TAB BID 07/27 1000 AC PO Last 24 Hrs of Lab/Malcolm Results Last 24 Hrs of Labs/Mics: Laboratory Tests 07/27/16 0630: Anion Gap 8, Estimated GFR > 60, BUN/Creatinine Ratio 25.0, Magnesium 2.1 Orders ECHO Findings: 1. Normal EF of 60% with impaired LV relaxation. 2. Mild left ventricular hypertrophy. 3. Mild to moderate mitral regurgitation. 4. Mild tricuspid regurgitation. 5. Mild to moderate aortic regurgitation. 6. Mild tricuspid regurgitation. 7. Mild pulmonic regurgitation. Radiology Findings: THYROID US: 2 solid nodules are seen in the lower pole of the left lobe. Per the JIMBO recommendations, an ultrasound guided biopsy of the dominant nodule in the lower pole of the left lobe is recommended. MRI HEAD W/WO GILES: Platelike area of signal abnormality with equivocal superimposed enhancement in the right basal ganglia, most suggestive of an evolving subacute infarct. Follow up MRI can be performed to document expected evolution. No additional abnormal intracranial enhancement is visualized. There is mild generalized volume loss and mild to moderate chronic microangiopathy. Assessment/Plan Assessment: 81 y/o F with PMHx of HTN, HLD and osteoarthritis who presents with dizziness, headache and neck pain. #Subacute right subcortical infarct: Current symptomatology likely secondary to small subacute ischemic infarct with MRI Brain W/WO GILES demonstrating evolving subacute infarct in the right basal ganglia. * Neurology follow up provided on discharge. * Aspirin 81 mg PO daily and atorvastatin 80 mg PO daily added to discharge medications. * Meclizine 12.5 mg PO TID PRN for dizziness. * Patient instructed to use cane for walking. #Thyroid nodule: Thyroid ultrasound with two solid nodules in the lower pole of the left lobe. TSH WNL. * Follow up with endocrinology as outpatient for possible biopsy. Referral provided. #Left-sided neck pain: Most likely secondary to osteoarthritis with degenerative changes evident on imaging. * Recommend OTC Tylenol for pain. Diet: Regular DVT PPx: Lovenox and ALPs CODE: FULL Problem List: 1. Dizziness 2. Neck pain on left side 3. Thyroid nodule 4. Subcortical infarction 5. CVA (cerebral vascular accident) Pain Ratin Pain Location: Neck Pain Goal: Remain pain free Pain Plan: Morphine 4 mg IV Q12H PRN for severe pain (scale 7-10) Percocet 1 tab PO Q6H PRN for moderate pain (scale 4-6) Tylenol 650 mg PO Q6H PRN for mild pain (scale 1-3) Tomorrow's Labs & Rationales: None Discharge Plan Discharge Disposition: home Stable for Discharge? Yes Anticipated Discharge (Day): today
[2016-07-27 08:03] VITALS: BP 118/70
--- NOTE | 2016-07-27 08:39 | ECHOCARDIOGRAM REPORT ---
KATERINE CONTRERAS Age: 81 : 1935 Gender: F Exam Date: 07/26/2016 10:20 Exam Location: [address] Ht (in): 53 Wt (lb): 116 BSA: 1.43 BP: 150 / 80 Ordering Physician: STEPHANIE ARRIOLA MD Referring Physician: STEPHANIE ARRIOLA MD Technologist: Deepali Kilgore [facility] Room Number: [id number] Indications: LIGHTHEADEDNESS Rhythm: Sinus Technical Quality: good FINDINGS Left Ventricle Normal left ventricular size with mild left ventricular hypertrophy. Normal systolic function with no obvious regional wall motion abnormalities. Diastolic filling pattern is consistent with impaired LV relaxation. The ejection fraction is visually estimated at 60%. Right Ventricle The right ventricle is normal in size and function. Right Atrium The right atrium is normal in size. Left Atrium The left atrium is normal in size. The interatrial septum is intact. Mitral Valve The mitral valve is normal in structure and function. There is mild to moderate mitral regurgitation. Aortic Valve Structurally normal aortic valve without significant sclerosis or stenosis. There is mild to moderate aortic regurgitation. Tricuspid Valve The tricuspid valve is normal in structure and function. There is mild tricuspid regurgitation. Pulmonary artery systolic pressure is normal. Pulmonic Valve Structurally normal pulmonic valve. There is mild pulmonic regurgitation. Pericardium Normal pericardium without effusion. No pleural effusion. Great Vessels Normal aortic root dimension. The aortic arch and great vessels are well seen and are normal. CONCLUSIONS 1. Normal EF of 60% with impaired LV relaxation. 2. Mild left ventricular hypertrophy. 3. Mild to moderate mitral regurgitation. 4. Mild tricuspid regurgitation. 5. Mild to moderate aortic regurgitation. 6. Mild tricuspid regurgitation. 7. Mild pulmonic regurgitation. Lewis Barrett M.D. (Electronically Signed) Final Date: 27 Jul 2016 08:38 MEASUREMENTS (Male / Female) Normal Values 2D ECHO LV Diastolic Diameter PLAX 4.1 cm 4.2 - 5.9 / 3.9 - 5.3 cm LV Systolic Diameter PLAX 2.6 cm 2.1 - 4.0 cm LV Fractional Shortening PLAX 36.6 % 25 - 46 % LV Ejection Fraction 2D Teich 66.8 % IVS Diastolic Thickness 1.2 cm LVPW Diastolic Thickness 1.1 cm LV Relative Wall Thickness 0.6 RV Internal Dim ED PLAX 2.2 cm 1.9 - 3.8 cm LVOT Diameter 1.9 cm Aortic Root Diameter 3.5 cm LA Systolic Diameter LX 3.1 cm 3.0 - 4.0 / 2.7 - 3.8 cm LA Volume 28.0 cm 18 - 58 / 22 - 52 cm Ascending Aorta Diameter 3.4 cm DOPPLER AV Peak Velocity 140.0 cm/s AV Peak Gradient 7.8 mmHg AV Mean Velocity 96.3 cm/s AV Mean Gradient 4.0 mmHg AV Velocity Time Integral 32.8 cm LVOT Peak Velocity 80.5 cm/s LVOT Peak Gradient 2.6 mmHg LVOT Mean Velocity 59.8 cm/s LVOT Mean Gradient 2.0 mmHg LVOT Velocity Time Integral 19.8 cm LVOT Stroke Volume 56.1 cm AV Area Cont Eq vti 1.7 cm AV Area Cont Eq pk 1.6 cm MV Peak Velocity 109.0 cm/s MV Peak Gradient 4.8 mmHg MV Mean Velocity 63.8 cm/s MV Mean Gradient 2.0 mmHg Mitral E Point Velocity 73.1 cm/s Mitral A Point Velocity 97.7 cm/s Mitral E to A Ratio 0.7 MV PHT Velocity 99.0 cm/s MV Deceleration [place] 595.0 cm/s MV Pressure Half Time 49.9 ms MV Area PHT 4.4 cm MV Deceleration Time 195.0 ms TR Peak Velocity 267.0 cm/s TR Peak Gradient 28.5 mmHg Right Atrial Pressure 5.0 mmHg Pulmonary Artery Systolic Pressu 33.5 mmHg Right Ventricular Systolic Press 33.5 mmHg PV Peak Velocity 83.5 cm/s PV Peak Gradient 2.8 mmHg PV Mean Velocity 59.6 cm/s PV Mean Gradient 2.0 mmHg PV Velocity Time Integral 17.1 cm LV E' Lateral Velocity 7.2 cm/s Mitral E to LV E' Lateral Ratio 10.1 LV E' Septal Velocity 4.2 cm/s Mitral E to LV E' Septal Ratio 17.3
--- NOTE | 2016-07-27 10:31 | PN- Student ---
GIULIANO STEPHENS 07/27/16 1024: Subjective Subjective: Medical Student Daily Progress Note: Heather Hahn is a 81yo F with PMH of HTN, HLD, and chronic back pain, who was admitted on 07/25 for evaluation of a 2 week history of dizziness and presyncope. There were no overnight events. This morning the patient states she feels like her head is spinning occasionally. She complains of constipation and some residual neck pain. Otherwise, she has no complaints. Current Medications Sig/Gloria Start time Last Medication Dose Route Stop Time Status Admin Acetaminophen 650 MG .STK-MED ONE 07/26 1413 DC PO 07/26 1414 Acetaminophen 650 MG Q6-PRN PRN 07/25 2045 AC 07/26 PO 1412 Aspirin 81 MG DAILY 07/26 1000 AC 07/26 PO 0944 Atorvastatin Calcium 40 MG 1700 07/26 1700 AC 07/26 PO 1652 Celecoxib 200 MG DAILY 07/26 1000 AC 07/26 PO 0944 Enoxaparin Sodium 40 MG DAILY 07/26 1000 AC 07/26 SC 0946 Lisinopril 10 MG DAILY 07/26 1000 AC 07/26 PO 0946 Morphine Sulfate 4 MG Q12P PRN 07/26 0330 AC IV Omeprazole 20 MG DAILY AC 07/26 0700 AC 07/27 PO 0658 Oxycodone/ 1 TAB Q6P PRN 07/26 0330 AC 07/27 Acetaminophen PO 0837 Polyethylene Glycol 17 GM DAILY 07/27 1000 AC PO Senna/Docusate Sodium 1 TAB BID 07/27 1000 AC PO Objective Objective: Vital Signs Date Time Temp Pulse Resp B/P B/P Pulse O2 O2 Flow FiO2 Mean Ox Delivery Rate 07/27 0803 97.7 70 18 118/70 98 Room Air 07/26 1557 98.1 82 16 108/50 97 Room Air 07/26 1555 97.9 103 16 160/110 93 Nasal 1.0L Cannula Intake & Output 07/27 1600 07/27 0800 05/08 0000 Intake Total 200 240 Output Total Balance 200 240 Intake, Oral 200 240 Telemetry Monitoring: sinus bradycardia to sinus rhythm, rate 58 - 69 bpm. No events Gen: comfortable, no acute distress Neuro: A&O x3, slightly unsteady gait, 5/5 strength x4 extremities HEENT: atraumatic, moist mucosa CV: RRR, no murmurs Pulmonary: CTA, normal air movement GI: abdomen soft and non-tender, bowel sounds present Extremities: no clubbing or cyanosis Results Results: Laboratory Tests 07/27/16 0630: Anion Gap 8, Estimated GFR > 60, BUN/Creatinine Ratio 25.0, Magnesium 2.1 07/26/16 0105: TSH 1.550 07/26/16 Thyroid US: IMPRESSION: 2 solid nodules are seen in the lower pole of the left lobe. Per the JIMBO recommendations, an ultrasound guided biopsy of the dominant nodule in the lower pole of the left lobe is recommended. Assessment/Plan Assessment: Heather Hahn is a 81yo F with PMH of HTN, HLD, and chronic back pain, who was admitted on 07/25 for evaluation of a 2 week history of dizziness and presyncope. Plan: Presyncope and dizziness: CTA head and neck demonstrating possible subacute infarcts and calcified atheromatous plaques of bilateral carotid bifurcations. Evaluated by neurology, recommends MRI and empiric ASA 81 mg and statin therapy for probable subacute ischemic stroke. changed from outpatient simvastatin 20mg at night to atorvastatin 80mg po daily as inpatient. * continue atorvastatin and aspirin as described * educate patient on diet and lifestyle changes * Continue telemetry * neuro checks q4h * MRI pending HTN: on lisinopril 10mg po daily at home. has been normotensive on this admission. * continue lisinopril Chronic back pain: on celecoxib 200mg daily, acetaminophen 500mg x 2tabs as needed. * Continue celecoxib * Tylenol as needed * Morphine 4mg q12h prn for breakthrough pain Neck pain: ?degenerative changes and arthritis on CT neck without evidence of disc disease. No acute injury or deformity, appears to be 2/2 degenerative disease on physical exam. * Celecoxib and Tylenol as above Constipation: patient complaining of difficulty having BM, reports this is abnormal for her. * Miralax and Senokot prn for constipation Incidental thyroid nodule: incidental finding on CTA of neck. Thyroid US showing 2 thyroid nodules in lower pole of left lobe. TSH 1.55. * Further workup as outpatient with PCP * US guided biopsy as outpatient Code Status: Full Diet: Regular DVT prophylaxis: Lovenox 40mg SC
[2016-07-27 11:26] VITALS: BP 114/66
[2016-07-27] MEDS ORDERED: ASPIRIN81 M4 PO (13:33)
[2016-07-27] MEDS ORDERED: ATORVASTATIN CA40 M1 PO (13:33)
--- NOTE | 2016-07-27 13:41 | Patient Discharge Instructions ---
Discharge Instructions General Discharge Information You were seen/treated for: Ischemic stroke Thyroid nodules Watch for these problems: Dizziness, lightheadedness or shortness of breath Chest pain Weakness or numbness in your face, arm or leg Confusion or difficulty speaking Severe headache or loss of balance Special Instructions: Please follow up with your primary care physician Dr. Matthew Berman within one week of discharge. Please follow up with your neurologist Dr. John Herron within two weeks of discharge. We are giving you a referral for service vehicle operator Dr. Anaid Guido. Please follow up with her regarding your thyroid within two weeks of discharge. Call her office at to schedule an appointment. Diet Continue normal diet: Yes Activity Activity Self Limited: Yes Additional ACTIVITY Info: Please use a cane for walking. Acute Coronary Syndrome Inclusion Criteria At DC or during hospital stay patient has or had the following: ACS DIAGNOSIS No Discharge Core Measures Meds if any: Prescribed or Continued at Discharge Meds if any: NOT Prescribed or Continued at Discharge Congestive Heart Failure Inclusion Criteria At DC or during hospital stay patient has or had the following: CHF DIAGNOSIS No Discharge Core Measures Meds if any: Prescribed or Continued at Discharge Meds if any: NOT Prescribed or Continued at Discharge Cerebrovascular accident Inclusion Criteria At DC or during hospital stay patient has or had the following: CVA/TIA Diagnosis Yes Discharge Core Measures Meds if any: Prescribed or Continued at Discharge Antithrombotic Yes Statin (required if LDL =>70) Yes Anticoagulant No Meds if any: NOT Prescribed or Continued at Discharge No Anticoagulant d/t Medical Contraindication (No evidence of cardioembolism) Venous thromboembolism Inclusion Criteria VTE Diagnosis No VTE Type NONE VTE Confirmed by (Test) NONE Discharge Core Measures - Per Current guidelines, there needs to be overlap - treatment for the first 5 days of Warfarin therapy. - If discharged on Warfarin prior to 5 days of - overlap therapy, the patient will need to be - assessed for post discharge needs including - *Post discharge parental anticoagulation - *Warfarin and/or parental anticoagulation education - *Follow up date to check INR post discharge At least 5 days overlap therapy as Inpatient No Meds if any: Prescribed or Continued at Discharge Note: Overlap Therapy is Warfarin and Anticoagulant Meds if any: NOT Prescribed or Continued at Discharge
--- NOTE | 2016-07-27 14:23 | MRI REPORT ---
EXAMINATION: MR BRAIN WITHOUT AND WITH CONTRAST CLINICAL INFORMATION: Dizziness COMPARISON: Head CT and CT angiogram from 07/25/2016 TECHNIQUE: MRI of the brain was obtained using routine sequences before and after the intravenous administration of 10 mL of OptiMARK. FINDINGS: There is a platelike area of high signal on the diffusion-weighted images involving the right caudate nucleus and anterior lentiform nucleus which is isointense to slightly bright on the ADC map. There is associated T2 prolongation and T1 shortening superimposed on which there is minor enhancement; the enhancement is not as well visualized on the current study as on 07/25/2016. Findings are most suggestive of a subacute infarct. Follow-up MR study in 4-6 weeks can be performed to document expected evolution. No additional abnormal intracranial enhancement accounting for vascular structures. There is mild generalized prominence of the ventricles, sulci, and extra-axial CSF spaces as well as mild to moderate scattered T2 prolongation in the periventricular, deep, and subcortical white matter of both hemispheres suggesting chronic microangiopathy. There is no susceptibility artifact to suggest acute or chronic blood products. Apart from the area of diffusion abnormality described above there is no additional diffusion abnormality and there is no convincing restricted diffusion visualized. No extra-axial collections. No significant mass effect or shift of the normally midline structures. The major arterial and venous flow voids are preserved. Marrow signal is maintained. No upper cervical adenopathy. The paranasal sinuses are clear apart from minor mucosal thickening in the ethmoid air cells. The nasal cavity, nasopharynx, and mastoid air cells are clear. The orbits appear unremarkable. IMPRESSION: Platelike area of signal abnormality with equivocal superimposed enhancement in the right basal ganglia, most suggestive of an evolving subacute infarct. Follow up MRI can be performed to document expected evolution. No additional abnormal intracranial enhancement is visualized. There is mild generalized volume loss and mild to moderate chronic microangiopathy.
[2016-07-27] MEDS ORDERED: ATORVASTATIN CA80 M1 PO (14:30)
[2016-07-27] MEDS ORDERED: MECLIZINE HCL12.5 M1 PO (15:00)
--- NOTE | 2016-07-27 16:05 | Discharge Summary ---
Visit Information Visit Dates Admission Date: 07/25/16 Discharge Date: 07/27/16 Hospital Course Course Attending Physician: ANNE PERDUE MD Primary Care Physician: Maria Antonia BERMAN MD Consulting Request: Consulting Specialty: Neurology Consulting Physician: Andrew Herron MD Hospital Course: Ms. Hahn is a 81 y/o F with PMHx of HTN, HLD and osteoarthritis who presented with recurrent episodes of dizziness and near-syncope of several weeks duration with acute worsening over the past four days. On initial presentation, vitals were normal. Neurological exam was completely benign. CBC, BMP and LFTs were within normal limits. EKG showed normal sinus rhythm. CTA Head/Neck revealed subtle enhancement of the right caudate head and the right putamen suspicious for a subacute infarct. Patient was admitted for further evaluation and management of dizziness and possible subcortical CVA. Below are the issues that were addressed during current presentation: #Subacute right subcortical CVA: Patient was started on aspirin and statin. MRI Brain W/WO GILES was performed which confirmed evolving subacute infarct in the right putamen and caudate. Continuous cardiac monitoring revealed no events. ECHO was performed which showed normal LVEF of 60% with impaired LV relaxation. On day 3 of admission, dizziness had significantly improved. Physical therapy felt that it was safe to discharge patient home but recommended a cane for walking. * Patient was instructed to take aspirin 81 mg PO daily and atorvastatin 80 mg PO daily on discharge. * Referral for neurologist Dr. Andrew Herron was provided on discharge for outpatient follow up. * Meclizine 12.5 mg PO TID PRN was added to discharge medications as it had helped with dizziness when administered in the ED. #Thyroid nodule: CTA Neck that had been performed on admission showed a heterogenously enhancing nodule involving the thyroid isthmus in the lower pole of the left thyroid lobe. TSH was checked and came back normal. The thyroid nodule was further characterized by a thyroid ultrasound, which revealed a 1.9 x 1.4 x 2.8 cm heterogenous nodule with smooth margins with hypoechoic rim, positive vascular flow and internal calcifications as well as a 0.8 x 0.7 x 0.7 cm hyperechoic nodule with smooth margins with hypoechoic rim, no calcification and positive vascular flow, also in the lower pole of the left thyroid lobe. * Referral for screen vent binder Dr. Anaid Feng was provided on discharge for further evaluation of the thyroid nodule, including biopsy. #Left-sided neck pain: Patient complained of left-sided neck pain throughout hospitalization. This was felt to be secondary to osteoarthritis in the presence of degenerative changes of cervical spine evident on imaging. * Patient was recommended to take [id number] Tylenol for pain. Allergies: Coded Allergies: NO KNOWN ALLERGIES (07/18/13) Significant Procedures: SERVICE DATE: 07/27/16- EXAM TYPE: MRI - MRI-HEAD W & W/O GILES EXAMINATION: MR BRAIN WITHOUT AND WITH CONTRAST CLINICAL INFORMATION: Dizziness COMPARISON: Head CT and CT angiogram from 07/25/2016 TECHNIQUE: MRI of the brain was obtained using routine sequences before and after the intravenous administration of 10 mL of OptiMARK. FINDINGS: There is a platelike area of high signal on the diffusion-weighted images involving the right caudate nucleus and anterior lentiform nucleus which is isointense to slightly bright on the ADC map. There is associated T2 prolongation and T1 shortening superimposed on which there is minor enhancement; the enhancement is not as well visualized on the current study as on 07/25/2016. Findings are most suggestive of a subacute infarct. Follow-up MR study in 4-6 weeks can be performed to document expected evolution. No additional abnormal intracranial enhancement accounting for vascular structures. There is mild generalized prominence of the ventricles, sulci, and extra-axial CSF spaces as well as mild to moderate scattered T2 prolongation in the periventricular, deep, and subcortical white matter of both hemispheres suggesting chronic microangiopathy. There is no susceptibility artifact to suggest acute or chronic blood products. Apart from the area of diffusion abnormality described above there is no additional diffusion abnormality and there is no convincing restricted diffusion visualized. No extra-axial collections. No significant mass effect or shift of the normally midline structures. The major arterial and venous flow voids are preserved. Marrow signal is maintained. No upper cervical adenopathy. The paranasal sinuses are clear apart from minor mucosal thickening in the ethmoid air cells. The nasal cavity, nasopharynx, and mastoid air cells are clear. The orbits appear unremarkable. IMPRESSION: Platelike area of signal abnormality with equivocal superimposed enhancement in the right basal ganglia, most suggestive of an evolving subacute infarct. Follow up MRI can be performed to document expected evolution. No additional abnormal intracranial enhancement is visualized. There is mild generalized volume loss and mild to moderate chronic microangiopathy. Disposition Summary Disposition Principal Diagnosis: Subacute right subcortical CVA Additional Diagnosis: Thyroid nodule Left-sided neck pain secondary to osteoarthritis Discharge Disposition: home health services Discharge Instructions General Discharge Information Code Status: Full Code Patient's Diet: Regular Patient's Activity: Needs cane for walking Follow-Up Instructions/Appts: Please follow up with your primary care physician Dr. Matthew Berman within one week of discharge. Please follow up with your neurologist Dr. Andrew Herron within two weeks of discharge. We are giving you a referral for screen vent binder Dr. Anaid Feng. Please follow up with her regarding your thyroid within two weeks of discharge. Call her office at to schedule an appointment. Medications at Discharge Discharge Medications: Stop taking the following medications: Simvastatin (Simvastatin*) 20 MG TABLET ORAL Every night Qty = 90 Continue taking these medications: Lisinopril (Lisinopril) 10 MG TABLET 1 Tablet ORAL DAILY Qty = 90 Comments: Last Taken: 07/27/16 Time: 11:30 am Celecoxib (Celecoxib) 200 MG CAPSULE 1 Capsule ORAL DAILY Qty = 90 Comments: Last Taken: 07/27/16 Time: 11:30 am Omeprazole (Omeprazole) 20 MG CAPSULE.DR 1 Capsule ORAL DAILY Qty = 180 Comments: Last Taken: 07/27/16 Time: 7:00 AM Multivitamin (Multi-Day Vitamins) 1 EACH TABLET 1 Tablet ORAL DAILY Comments: NOT GIVEN IN HOSPITAL Acetaminophen (Acetaminophen) 500 MG TABLET 2 Tablet ORAL DAILY Comments: Last Taken: 07/27/16 Time: 4:00 pm Start taking the following new medications: Atorvastatin Calcium (Atorvastatin Calcium) 80 MG TABLET 1 Tablet ORAL DAILY Qty = 30 No Refills Comments: Last Taken: 07/27/16 Time: 4:00 PM Aspirin (Aspirin*) 81 MG TAB.CHEW 1 Tablet ORAL DAILY Qty = 30 No Refills Comments: Last Taken: 07/27/16 Time: 11:30 AM Meclizine HCl (Meclizine HCl) 12.5 MG TABLET 1 Tablet ORAL THREE TIMES DAILY as needed for DIZZINESS Qty = 30 No Refills Comments: NOT GIVEN IN HOSPITAL Copies To: THELMA BULL,ANDREW FENG MD,Maria Antonia OTOOLE MD Attending Review Statement Documenting Attending: ANNE PERDUE MD Other Findings: The patient was seen and discussed with house staff. Agree with the plan of care. Follow-up with PCP and Neurology as well as Endocrinology regarding thyroid nodule.
== END 2016-07-27 17:00 | disposition home health service (06) | DRG 66 ==
LOC: ERH 13:19 → ERHI 17:06 → 1NO 17:06 → ENRESERV 19:35 → 1NO 20:28 → ENPENDDIS 07-27 15:40 → 1NO 07-27 17:00
PROVIDERS: Physician Assistant; ADMIT Internal Medicine
DX: I63.9 Cerebral infarction, unspecified (principal); I10 Essential (primary) hypertension; E78.5 Hyperlipidemia, unspecified; E04.1 Nontoxic single thyroid nodule; M47.892 Other spondylosis, cervical region
CPT/HCPCS: 1NSP; 70552; 36415; 70553; 82436; 93005; 93010; 93306; 97116-GO; 97161-GP; 97165-GO; A9579; J1650; J3490